=== PATIENT | male | born 2000 | race African-American/Black ===

== ENCOUNTER 2019-10-16 09:07 | Inpatient (IN) | payer SELFPAY ==
[2019-10-16 09:13] VITALS: BP 140/89; PULSE 60; RESP 18; TEMP 36.4; O2SAT 100; BMI 24.3
--- NOTE | 2019-10-16 09:16 | ED_ITS ---
Entered by Sis Gamino, acting as scribe for Ivelisse Benito MD HPI - Psych General: Chief Complaint: Psychiatric Symptoms Stated Complaint: SI Time Seen by Provider: 10/16/19 09:12 Source: patient Mode of arrival: ambulatory Limitations: no limitations History of Present Illness: HPI Narrative: 19 yo male presents with depression and SI thoughts. pt states he is having a hard time dealing with his son, son is teething and crying more. pt states he wants help with depression. pt denies any other symptoms at this time. MD complaint: suicidal ideation and feels depressed Onset (ago): day(s) (2-3 days) Duration: changing over time Relieving factors: none Exacerbating factors: other (son crying due to teething) Associated psychiatric symptoms: depression Associated symptoms: Reports depression Treatments prior to arrival: none If self harm: admits thoughts of self harm Review of Systems Const: Denies: fever, chills, body aches or change in appetite Eyes: Denies: blurry vision or eye discomfort ENMT: Denies: throat pain or dental pain Card: Denies: chest pain Resp: Denies: shortness of breath GI: Denies: abdominal pain, nausea, vomiting or diarrhea : Denies: painful urination Musc: Denies: neck pain or back pain Skin/Breast: Denies: rash Neuro: Denies: headache Psych: Reports: depression Kyle/Lymph: Denies: easy bruising All/Imm: Denies: hives PFSH ED PFSH: Social History Smoking and tobacco status: never smoked Physical Exam Const: COMMON NORMALS: no apparent distress, oriented x3 and healthy appearing HENMT: COMMON NORMALS: normocephalic and head/scalp atraumatic HEAD & SCALP: normocephalic and atraumatic Eye: COMMON NORMALS: PERRL and EOMs intact bilaterally PUPIL: Yes PERRL Neck/C-Spine: COMMON NORMALS: full ROM and supple Chest: COMMONS NORMALS: inspection of chest normal and palpation of chest normal Resp: COMMON NORMALS: normal respiratory effort, no retractions, no use of accessory muscles and clear to auscultation bilaterally AUSCULTATION: clear to auscultation bilaterally Cardio: COMMON NORMALS: regular rate, regular rhythm and no murmurs RATE: regular rate RHYTHM: regular rhythm GI: COMMON NORMALS: normal to inspection, nondistended, normoactive bowel sounds, soft to palpation, non-tender and no masses PALPATION: Yes soft Extremity: COMMON NORMALS: normal to inspection and full ROM Neuro: COMMON NORMALS: oriented x3, moves all extremities and no focal motor deficits Skin: COMMON NORMALS: no rashes or lesions noted and no wounds GENERAL SKIN EXAM: no rashes or lesions noted MDM - Psych MDM Narrative: Medical decision making narrative: Patient presents here with depression and being overwhelmed. He is currently out of his meds as well. Patient's voluntary and would like to be admitted. I spoke to psychiatrist and will admit to the MPU. Patient is medically cleared. Lab Data: Labs: Lab Results 10/16/19 10/16/19 10/16/19 Range/Units 09:30 09:40 09:40 WBC 4.3 L (4.5-13.0) 10^3/ uL RBC 4.95 (4.1-5.3) 10^6/u L Hgb 14.9 (11.7-16.6) g/dL Hct 45.4 (42.0-52.0) % MCV 91.7 (80-94) fL MCH 30.1 (28.0-34.0) pg MCHC 32.8 (30.0-36.0) g/dL RDW 13.0 (12.1-15.1) % Plt Count 238 (130-400) 10^3/c mm MPV 10.8 H (7.4-10.4) fL Neut % (Auto) 51.1 % Lymph % (Auto) 34.3 % Foard % (Auto) 8.8 % Eos % (Auto) 4.4 % Baso % (Auto) 1.2 % Neut # (Auto) 2.2 (1.8-8.0) 10^3/u L Lymph # (Auto) 1.5 (1.5-6.5) 10^3/u L Foard # (Auto) 0.4 (0.2-0.9) 10^3/u L Eos # (Auto) 0.2 (0.0-0.8) 10^3/u L Baso # (Auto) 0.1 (0.0-0.1) 10^3/u L Nucleated RBC % (a uto) 0 % Nucleated RBCs # 0.0 /100WBC Sodium 143 (136-145) mmol/L Potassium 4.3 (3.5-5.1) mmol/L Chloride 104 (98-107) mmol/L Carbon Dioxide 26 (22-29) mmol/L Anion Gap 17.3 (5-19) BUN 13 (6-20) mg/dL Creatinine 0.8 (0.7-1.2) mg/dL GFR Calculation 149.1 H (90-130) mL/min Glucose 100 (65-115) mg/dL Calcium 10.0 (8.5-10.5) mg/dL Total Bilirubin 0.3 (0.15-1.2) mg/dL AST 31 (0-40) U/L ALT 23 (0-41) U/L Alkaline Phosphata se 89 (40-130) IU/L Total Protein 8.2 (6.6-8.7) g/dL Albumin 4.6 (3.5-5.2) g/dL Globulin 3.6 (1.3-4.6) g/dL Salicylates < 0.3 L (3-10) mg/dL Urine Opiates Scre en Negative (Negative) ng/mL Acetaminophen < 5.0 L (10-30) ug/mL Ur Barbiturates Sc reen Negative (Negative) ng/mL Ur Phencyclidine S crn Negative (Negative) ng/mL Ur Amphetamines Sc reen Negative (Negative) ng/mL U Benzodiazepines Scrn Negative (Negative) ng/mL Urine Cocaine Scre en Negative (Negative) ng/mL U Marijuana (THC) Screen Negative (Negative) ng/mL Ethyl Alcohol < 10 (0-10) mg/dL Discharge Plan Discharge Patient Disposition: Admitted As Inpatient Clinical Impression: Depression Qualifiers: Depression Type: unspecified Qualified Code(s): F32.9 - Major depressive disorder, single episode, unspecified Condition: Stable Coding Level of Care Code ED Marketing Account Manager for Chg Fwd Exam Comprehensive The documentation recorded by the Stevenson shen Bridget Annette, accurately reflects the service I personally performed and the decisions made by , Ivelisse Benito MD Oct 16, 2019 09:07
[2019-10-16 09:56] LABS: Basophils # 0.1 10^3/uL (0.0-0.1); Basophils % 1.2 %; Eosinophils # 0.2 10^3/uL (0.0-0.8); Eosinophils % 4.4 %; Hematocrit 45.4 % (42.0-52.0); Hemoglobin 14.9 g/dL (11.7-16.6); Lymphocytes # 1.5 10^3/uL (1.5-6.5); Lymphocytes % 34.3 %; Mean Corpuscular HGB Conc 32.8 g/dL (30.0-36.0); Mean Corpuscular Hemoglobin 30.1 pg (28.0-34.0); Mean Corpuscular Volume 91.7 fL (80-94); Mean Platelet Volume 10.8 fL (7.4-10.4); Monocytes # 0.4 10^3/uL (0.2-0.9); Monocytes % 8.8 %; Neutrophils # 2.2 10^3/uL (1.8-8.0); Neutrophils % 51.1 %; Nucleated Red Blood Cells % 0 %; Platelet Count 238 10^3/cmm (130-400); Red Blood Count 4.95 10^6/uL (4.1-5.3); White Blood Count 4.3 10^3/uL (4.5-13.0)
--- NOTE | 2019-10-16 10:00 | PC.NURSE ---
LUNCH SACK GIVEN
[2019-10-16 10:13] LABS: Alanine Aminotransferase 23 U/L (0-41); Albumin Level 4.6 g/dL (3.5-5.2); Alkaline Phosphatase 89 IU/L (40-130); Anion Gap 17.3 (5-19); Aspartate Amino Transferase 31 U/L (0-40); Blood Urea Nitrogen 13 mg/dL (6-20); Carbon Dioxide 26 mmol/L (22-29); Chloride 104 mmol/L (98-107); Creatinine Clr Calc Pharmacy 174.5692; Globulin 3.6 g/dL (1.3-4.6); Glomerular Filtration Rate 149.1 mL/min (90-130); Glucose 100 mg/dL (65-115); Potassium 4.3 mmol/L (3.5-5.1); Sodium 143 mmol/L (136-145); Total Bilirubin 0.3 mg/dL (0.15-1.2); Total Protein 8.2 g/dL (6.6-8.7)
[2019-10-16 10:14] LABS: Amphetamines Screen Urine Negative (Negative); Barbiturates Screen Urine Negative (Negative); Benzodiazepines Screen Urine Negative (Negative); Cocaine Screen Urine Negative (Negative); Opiate Screen Urine Negative (Negative); PCP Screen Urine Negative (Negative); THC Screen Urine Negative (Negative)
[2019-10-16 10:19] LABS: Acetaminophen < 5.0 ug/mL (10-30); Alcohol Level < 10 mg/dL (0-10); Salicylate < 0.3 mg/dL (3-10)
[2019-10-16] MEDS: LORazepam 1 mg Tablet PO (10:50)
[2019-10-16 10:57] VITALS: BP 138/76; PULSE 65; RESP 18; O2SAT 100
[2019-10-16 12:48] VITALS: BP 123/80; PULSE 66; RESP 18; TEMP 36.2; O2SAT 99
[2019-10-16 14:00] VITALS: BP 125/74; PULSE 54; RESP 18; TEMP 36.6; O2SAT 100
[2019-10-16] MEDS: doxepin 50 mg Capsule PO (20:39)
--- NOTE | 2019-10-16 20:59 | PC.NURSE ---
With patient permission, called his employer to let them know he will not be showing up tomorrow because he is a patient at [facility], spoke with Andrea Mcneil.
[2019-10-16 21:35] VITALS: BP 113/68; PULSE 55; RESP 17; TEMP 36.9; O2SAT 100
[2019-10-17 05:59] VITALS: BP 116/71; PULSE 54; RESP 16; TEMP 36.5; O2SAT 100
--- NOTE | 2019-10-17 07:53 | P.HP_ITS ---
Providers/Chief Complaint Admitting Physician: True Brown MD Chief Complaint: SI HPI NPU History of Present Illness Chief complaint: I want them to think I'm more than worthless. Everything I do is wrong. History of present illness: Vandana Esparza is a 19 year old male who presents to the ER wanting medications that served him well until the age of 14. He said that he took Adderall to help focus his attention and Abilify to help free him from intrusive thoughts. However these are the only interventions with which she is familiar. In reality, he describes himself as suffering from clinical depression. He reports feeling sad and blue on a daily basis and he has extremely low self-esteem and feels hopeless and overwhelmed. he has good hedonic capacity. He has had suicidal thoughts in the past but infrequently. There have been no homicidal thoughts. He does report intrusive auditory hallucinations that are somewhat vague in nature. He says that he has established multiple different personalities to help deal with difficult situations in life and he hears the voices of personalities that help him manage what is going on. He denies that they have a command nature. They seem to be egosyntonic. however he would like to get rid of them so that he can focus his attention on the problems at hand.he says that he has not slept well for several years and sleeps only 15-20 minutes at a time. He is irritable. he denies a history of manic episodes. His urine drug screen is negative and he denies a history of substance use. Mental health history: he was treated at [facility] in [place]. He received a combination of counseling and medication management. He was managed on Adderall and Abilify did well. He was on his medications bet ween fifth and ninth grade. He has not received mental health care since then. He has never been hospitalized for mental health reasons. Social history: he is not a particularly linear historian. He moved to [place] from [place]. He says that in high school he was an excellent athlete. 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 He also enjoys being a [place]. However he does not see any potential for engaging in such activities since moving to [place]. He lives with his fianc?e and his 2-year-old child. At this point, his most important sources of enjoyment and self-esteem are his relationship with his ean and his 2-year-old child Legal history:no reported history of criminal activity arrests or convictions. Past medical history:he is in otherwise good health. I refer you to his medical assessment by the nursing staff in the emergency room. Mental Status Exam: the patient is a tall thin athletic black male appearing approximately his stated age. Eye contact is good. There is no attention to internal stimuli. He is believed to be a reliable informant to the best of his ability as information provided in his report is internally consistent and consistent with that in his chart that we do have any historical information. Appearance: hygiene is good; no gross neurological deficits., gait is unremarkable; AIMS=0 Speech: Speech is of normal rate and rhythm. his southern accent often makes it difficult to understand him completely. Thought processes: Thought processes are abstract. Judgment is adequate for safety. Associations: intact Psychotic processes: There is no indication of guarding or paranoia. There is no attention to the internal stimuli. Auditory and visual hallucinations are denied. Judgment: Insight is fair. Problem solving skills are adequate for safety. Orientation: The patient is oriented to person, place time and situation. Memory: no deficits noted in immediate, intermediate, or remote spheres. Attention: The patient is alert and interpersonally engaged. Language: Verbalizations are coherent. Fund of knowledge: Fund of knowledge is adequate. Affect/Mood: Affect is tearful with a depressed mood. he denied current suicidal ideation Affective range constricted Psychosis: perception unimpaired except through cognitive distortion; reality testing intact. 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 A variety of options were provided in terms of medication intervention he chose to initiate wellbutrin xl 150 mg daily with total administration of Abilify 5 mg daily. He is familiar with the Abilify and has taken in the past. Potential benefits and side effects of these medications were discussed. Did see plan for unexpected or intolerable side effects is discontinuation. He was also provided doxepin 25 mg 1-2 at bedtime when necessary insomnia. [facility] where hopefully he will get a combination of medication management and individual psychotherapy. Prognosis is good given that he is able to identify specific activities in which he would like to engage it would bring him a sense of self- esteem and enjoyment that is sorely missing in his life at this point. Meds NPU Home Medications Medication Instructions Recorded Confirmed Type No Known Home Medications 10/16/19 10/16/19 History Allergies Allergy/AdvReac Type Severity Reaction Status Date / Time No Known Allergies Allergy Verified 10/16/19 09:20 PFSH NPU PFSH: Social History Smoking and tobacco status: never smoked Vitals/I&O/Wt Last Vital Signs Temp 97.7 F 10/17/19 05:59 Pulse 54 L 10/17/19 05:59 Resp 16 10/17/19 05:59 BP 116/71 10/17/19 05:59 Pulse Ox 100 10/17/19 05:59 Weight last 48 hrs Weight 86.183 kg Data NPU : 10/16/19 09:40 10/16/19 09:40 Involuntary Hold Information 96 Hour Hold: 96 Hour Involuntary Admission: No Attestations NPU Medical Necessity Statement*: patient will remain in the hospital 1-2 nights until discharge planning can be established. Coding Level of Care Code Acute Medical Records Technician for [place]
[2019-10-17] MEDS: buPROPion XL (24 HR) 150 mg Tablet PO (10:15)
[2019-10-17] MEDS: ARIPiprazole 10 mg Tablet 5 MG PO (10:15)
--- NOTE | 2019-10-17 11:30 | PM.NDC ---
Reason for Visit Reason for Visit: Reason For Visit: SI Hospital Course Hospital Course Chief complaint: I want them to think I'm more than worthless. Everything I do is wrong. History of present illness: Vandana Esparza is a 19 year old male who presents to the ER wanting medications that served him well until the age of 14. He said that he took Adderall to help focus his attention and Abilify to help free him from intrusive thoughts. However these are the only interventions with which she is familiar. In reality, he describes himself as suffering from clinical depression. He reports feeling sad and blue on a daily basis and he has extremely low self-esteem and feels hopeless and overwhelmed. he has good hedonic capacity. He has had suicidal thoughts in the past but infrequently. There have been no homicidal thoughts. He does report intrusive auditory hallucinations that are somewhat vague in nature. He says that he has established multiple different personalities to help deal with difficult situations in life and he hears the voices of personalities that help him manage what is going on. He denies that they have a command nature. They seem to be egosyntonic. however he would like to get rid of them so that he can focus his attention on the problems at hand.he says that he has not slept well for several years and sleeps only 15-20 minutes at a time. He is irritable. he denies a history of manic episodes. His urine drug screen is negative and he denies a history of substance use. Mental health history: he was treated at [facility] in [place]. He received a combination of counseling and medication management. He was managed on Adderall and Abilify did well. He was on his medications between fifth and ninth grade. He has not received mental health care since then. He has never been hospitalized for mental health reasons. Social history: he is not a particularly linear historian. He moved to [place] from [place]. He says that in high school he was an excellent athlete. 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 He also enjoys being a [place]. However he does not see any potential for engaging in such activities since moving to [place]. He lives with his ena and his 2-year-old child. At this point, his most important sources of enjoyment and self-esteem are his relationship with his ean and his 2-year-old child Legal history:no reported history of criminal activity arrests or convictions. Past medical history:he is in otherwise good health. I refer you to his medical assessment by the nursing staff in the emergency room. Mental Status Exam: the patient is a tall thin athletic black male appearing approximately his stated age. Eye contact is good. There is no attention to internal stimuli. He is believed to be a reliable informant to the best of his ability as information provided in his report is internally consistent and consistent with that in his chart that we do have any historical information. Appearance: hygiene is good; no gross neurological deficits., gait is unremarkable; AIMS=0 Speech: Speech is of normal rate and rhythm. his southern accent often makes it difficult to understand him completely. Thought processes: Thought processes are abstract. Judgment is adequate for safety. Associations: intact Psychotic processes: There is no indication of guarding or paranoia. There is no attention to the internal stimuli. Auditory and visual hallucinations are denied. Judgment: Insight is fair. Problem solving skills are adequate for safety. Orientation: The patient is oriented to person, place time and situation. Memory: no deficits noted in immediate, intermediate, or remote spheres. Attention: The patient is alert and interpersonally engaged. Language: Verbalizations are coherent. Fund of knowledge: Fund of knowledge is adequate. Affect/Mood: Affect is tearful with a depressed mood. he denied current suicidal ideation Affective range constricted Psychosis: perception unimpaired except through cognitive distortion; reality testing intact. 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 A variety of options were provided in terms of medication intervention he chose to initiate wellbutrin xl 150 mg daily with total administration of Abilify 5 mg daily. He is familiar with the Abilify and has taken in the past. Potential benefits and side effects of these medications were discussed. Did see plan for unexpected or intolerable side effects is discontinuation. He was also provided doxepin 25 mg 1-2 at bedtime when necessary insomnia. Follow-[facility] where hopefully he will get a combination of medication management and individual psychotherapy. Prognosis is good given that he is able to identify specific activities in which he would like to engage it would bring him a sense of self-esteem and enjoyment that is sorely missing in his life at this point. Involuntary Hold Information 96 Hour Hold: 96 Hour Involuntary Admission: No Discharge Data Vitals: Last Vital Signs Temp 97.7 F 10/17/19 05:59 Pulse 54 L 10/17/19 05:59 Resp 16 10/17/19 05:59 BP 116/71 10/17/19 05:59 Pulse Ox 100 10/17/19 05:59 Discharge Plan Discharge Patient Disposition: Home, Self-Care Condition: Stable Prescriptions: New doxepin 50 mg Capsule 50 mg PO BEDTIME PRN (Reason: Insomnia) Qty: 30 RF: 4 aripiprazole 10 mg Tablet 5 mg PO DAILY Qty: 30 RF: 4 bupropion HCl 150 mg Tablet Extended Release 24 Hr 150 mg PO DAILY Qty: 30 RF: 5 Discharge Orders: Discharge Order (Routine); Ordered 10/17/19 Ordered By: True Brown Referrals: URGENT CARE PROVIDERS [Provider Group] [facility] [[facility]] Activity Restrictions/Additional Instructions: Follow up as a walk in at [facility], walk in hours are from 7:30AM-2:00PM, first come, first seen. Once you do this assessment you will be referred for appropriate services such as medication management and therapy. Another option for medications is [facility] [address] [place] [id number] Discharge Attestations NPU Time Spent in Discharge Care*: less than 30 min Coding Level of Care Code Acute Director Of District Office for [place]
[2019-10-17 11:50] VITALS: BP 116/71; PULSE 54; RESP 16; TEMP 36.5; O2SAT 100
== END 2019-10-17 14:49 | disposition home or self-care (01) | DRG 885 ==
LOC: ER 10:38 → NP 10:51
PROVIDERS: Admitting Provider Psychiatry & Neurology Psychiatry; Emergency Provider Emergency Medicine; Visit Provider Psychiatry & Neurology Psychiatry
DX: F33.3 Major depressive disorder, recurrent, severe with psychotic symptoms (principal); R45.851 Suicidal ideations; F51.01 Primary insomnia
CPT/HCPCS: 12345; 36415; 80053; 80307; 85025; 99284; A9270

== ENCOUNTER 2019-11-06 16:16 | Emergency (ER) | payer SELFPAY ==
[2019-11-06 16:16] VITALS: BMI 25.7
--- NOTE | 2019-11-06 16:18 | ED_ITS ---
Entered by Carrol Felton, acting as scribe for Shae Nguyen Rosetta HPI - Chest Pain General: Chief Complaint: Chest Pain Stated Complaint: CHEST PAIN Time Seen by Provider: 11/06/19 16:18 Source: patient and RN notes reviewed Mode of arrival: EMS Limitations: no limitations History of Present Illness: HPI narrative: 19 yo male presents to ED with complaints of chest pain. He said the pain is located in the L side of his chest, under his L breast. The patient states the pain began this morning. He said he was working when the pain began. He describes the pain as pressure . He said the pain radiates up to his head. He said he has never had this pain before now. He said exertion makes the pain worse. He said the pain feels different when pressure is applied. He said he does have a history of asthma but the pain does not feel like his asthma. He said he also has ADHD. He said he has a family medical history of HTN and cancer. MD complaint: chest pain Pertinent past history: asthma Onset (ago): hour(s) (this morning) Timing of current episode: constant Prior episodes: No Onset: during exertion Pain location: left chest Pain radiation: other (head) Severity: moderate Quality: other (pressure) Relieving factors: nothing Exacerbating factors: exertion Associated symptoms: Deny abdominal pain, diaphoresis, dyspnea, fever(s), nausea, palpitations, syncope or vomiting Risk Factors: Coronary artery disease risk factors: none Thoracic aortic dissection risk factors: none Review of Systems General: Reports: other (negative unless marked) Const: Denies: fever, chills, body aches, fatigue, malaise or diaphoresis Eyes: Denies: change in vision or blurry vision ENMT: Denies: throat pain, painful swallowing, hoarseness, ear pain, ear discharge, Change in hearing or nasal discharge Card: Denies: chest pain, palpitations, irregular heart rhythm, syncope, pre- syncope, shortness of breath on exertion or shortness of breath when lying down Resp: Denies: shortness of breath, productive cough, non-productive cough, wheezing, coughing up blood or chest congestion GI: Denies: abdominal pain, nausea, vomiting, vomiting blood, coffee grounds in vomit, diarrhea, constipation, cramping, blood in stool or black tarry stool : Denies: flank pain, difficulty urinating, painful urination, urinary frequency, urinary urgency, decreased urine ouput, urinary incontinence or blood in urine Musc: Denies: neck pain, back pain, extremity pain, extremity swelling, joint pain, joint swelling, joint warmth or joint stiffness Skin/Breast: Denies: rash, skin tenderness or yellow skin Neuro: Denies: headache, numbness in extremities, weakness in extremities, changes in sensation, lack of coordination, difficulty walking, dizziness, vertigo or confusion Endo: Denies: excessive thirst, tired all the time, cold intolerance, excessive sweating, flushing or hot flashes Kyle/Lymph: Denies: easy bruising, easy bleeding, petechiae or enlarged lymph nodes All/Imm: Denies: hives, throat swelling, tongue swelling, facial swelling or acute wheezing PFSH ED PFSH: Social History Smoking and tobacco status: never smoked Physical Exam Const: COMMON NORMALS: no apparent distress, oriented x3, no limitations, healthy appearing and well nourished EXAM LIMITATIONS: no altered mental status GENERAL APPEARANCE: cooperative, well kempt and well developed ORIENTATION/CONSCIOUSNESS: Yes awake HENMT: COMMON NORMALS: normocephalic, head/scalp atraumatic, hearing grossly normal bilaterally, external ears normal, EAC's normal, external nose normal and moist oral mucous membranes HEAD & SCALP: normal to inspection, normocephalic and atraumatic FACE & SINUS: normal facial exam and face symmetric NOSE: external nose normal and nares normal EXTERNAL EAR: Yes external ears normal EXTERNAL AUDITORY CANAL: EAC's normal MOUTH: oral and palatal mucosa normal and tongue normal Eye: COMMON NORMALS: PERRL, EOMs intact bilaterally, conjunctivae normal and no scleral icterus GENERAL EYE: normal appearance of both eyes and normal light reflex CONJUNCTIVA: Yes conjunctivae normal SCLERA: sclerae normal CORNEA: Yes corneas normal PUPIL: Yes PERRL DIRECT OPHTHALMOSCOPY: Yes normal light reflex Neck/C-Spine: COMMON NORMALS: full ROM, no lymphadenopathy, supple, no meningeal signs and no JVD GENERAL: Yes normal visual inspection and Yes trachea midline CERVICAL SPINE: Yes cervical ROM normal Chest: COMMONS NORMALS: inspection of chest normal and palpation of chest normal Resp: COMMON NORMALS: normal respiratory effort, no retractions, no use of accessory muscles and clear to auscultation bilaterally EFFORT & INSPECTION: Yes able to speak in complete sentences AUSCULTATION: clear to auscultation bilaterally Cardio: COMMON NORMALS: no JVD, regular rate, regular rhythm, S1 normal heart sound, S2 normal heart sound, no gallops, no clicks, no murmurs and no rub JUGULAR VENOUS DISTENTION: no JVD RATE: regular rate RHYTHM: regular rhythm HEART SOUNDS: S1 normal and S2 normal GI: COMMON NORMALS: soft to palpation, non-tender, no hepatosplenomegaly and no masses INSPECTION: Yes normal to inspection PALPATION: Yes soft and Yes no hepatosplenomegaly : COMMON NORMALS: Yes no CVA tenderness BLADDER/KIDNEY EXAM: Yes no CVA tenderness Back/Pelvis: COMMON NORMALS: no CVA tenderness, thoracic and lumbar spine normal to inspection, no thoracic nor lumbar tenderness and thoraco-lumbar ROM normal Extremity: COMMON NORMALS: normal to inspection, full ROM, normal capillary refill, no joint enlargement, no clubbing, cyanosis or edema and no calf tenderness Neuro: COMMON NORMALS: oriented x3, CN's II-XII intact bilaterally, moves all extremities, no focal motor deficits and no sensory deficits noted MENINGEAL SIGNS: Yes no meningeal signs Psych: COMMON NORMALS: mental status grossly normal, thought process normal, cooperative, affect normal, speech normal and activity/motor behavior normal APPEARANCE: Yes well kempt SPEECH: Yes normal speech THOUGHT PROCESS: normal thought process Skin: COMMON NORMALS: no rashes or lesions noted, skin turgor normal, no jaundice, no petechiae and no mottling GENERAL SKIN EXAM: no rashes or lesions noted and turgor normal Course Vital Signs: Vital signs: Vital Signs Temperature 98.5 F 11/06/19 16:21 Pulse Rate 68 11/06/19 19:32 Respiratory Rate 14 11/06/19 19:32 Blood Pressure 131/71 11/06/19 19:32 Pulse Oximetry 99 11/06/19 19:32 MDM - Chest Pain MDM Narrative: Medical decision making narrative: Mr. Esparza is a nice 19-year-old male comes in complaining of chest pain is localized left lower chest wall. It was reproducible to palpation. His EKGs are unremarkable. They were reviewed with Dr. Ruiz. Patient has no sign of aortic dissection. He had strong pulses throughout to all extremities and centrally. They were equal. His EKG is normal. His chest x-ray was normal per radiology. Patient believes night probably had a panic attack. He agrees to follow-up with his regular doctor return if necessary. Lab Data: Labs: Lab Results 11/06/19 11/06/19 11/06/19 Range/Units 16:41 16:41 16:41 WBC 6.6 (4.5-13.0) 10^3/ uL RBC 4.83 (4.1-5.3) 10^6/u L Hgb 13.6 (11.7-16.6) g/dL Hct 42.8 (42.0-52.0) % MCV 88.6 (80-94) fL MCH 28.2 (28.0-34.0) pg MCHC 31.8 (30.0-36.0) g/dL RDW 13.1 (12.1-15.1) % Plt Count 206 (130-400) 10^3/c mm MPV 10.7 H (7.4-10.4) fL Neut % (Auto) 73.1 % Lymph % (Auto) 19.2 % [place] % (Auto) 5.7 % Eos % (Auto) 1.2 % Baso % (Auto) 0.3 % Neut # (Auto) 4.9 (1.8-8.0) 10^3/u L Lymph # (Auto) 1.3 L (1.5-6.5) 10^3/u L [place] # (Auto) 0.4 (0.2-0.9) 10^3/u L Eos # (Auto) 0.1 (0.0-0.8) 10^3/u L Baso # (Auto) 0.0 (0.0-0.1) 10^3/u L Nucleated RBC % (a uto) 0 % Nucleated RBCs # 0.0 /100WBC D-Dimer 0.35 (0-0.59) ug/mIFE U Sodium 142 (136-145) mmol/L Potassium 4.0 (3.5-5.1) mmol/L Chloride 102 (98-107) mmol/L Carbon Dioxide 29 (22-29) mmol/L Anion Gap 15.0 (5-19) BUN 12 (6-20) mg/dL Creatinine 0.9 (0.7-1.2) mg/dL GFR Calculation 130.2 H (90-130) mL/min Glucose 98 (65-115) mg/dL Calculated Osmolal ity 290 (285-295) mOsm/k g Calcium 9.7 (8.5-10.5) mg/dL Total Bilirubin 0.4 (0.15-1.2) mg/dL AST 30 (0-40) U/L ALT 30 (0-41) U/L Alkaline Phosphata se 67 (40-130) IU/L Troponin T Baselin e (0-15) ng/mL Total Protein 7.4 (6.6-8.7) g/dL Albumin 4.6 (3.5-5.2) g/dL Globulin 2.8 (1.3-4.6) g/dL Ethyl Alcohol < 10 (0-10) mg/dL Influenza Type A A g (Negative) POC Influenza B Ag (Negative) 11/06/19 11/06/19 Range/Units 16:41 17:03 WBC (4.5-13.0) 10^3/ uL RBC (4.1-5.3) 10^6/u L Hgb (11.7-16.6) g/dL Hct (42.0-52.0) % MCV (80-94) fL MCH (28.0-34.0) pg MCHC (30.0-36.0) g/dL RDW (12.1-15.1) % Plt Count (130-400) 10^3/c mm MPV (7.4-10.4) fL Neut % (Auto) % Lymph % (Auto) % [place] % (Auto) % Eos % (Auto) % Baso % (Auto) % Neut # (Auto) (1.8-8.0) 10^3/u L Lymph # (Auto) (1.5-6.5) 10^3/u L [place] # (Auto) (0.2-0.9) 10^3/u L Eos # (Auto) (0.0-0.8) 10^3/u L Baso # (Auto) (0.0-0.1) 10^3/u L Nucleated RBC % (a uto) % Nucleated RBCs # /100WBC D-Dimer (0-0.59) ug/mIFE U Sodium (136-145) mmol/L Potassium (3.5-5.1) mmol/L Chloride (98-107) mmol/L Carbon Dioxide (22-29) mmol/L Anion Gap (5-19) BUN (6-20) mg/dL Creatinine (0.7-1.2) mg/dL GFR Calculation (90-130) mL/min Glucose (65-115) mg/dL Calculated Osmolal ity (285-295) mOsm/k g Calcium (8.5-10.5) mg/dL Total Bilirubin (0.15-1.2) mg/dL AST (0-40) U/L ALT (0-41) U/L Alkaline Phosphata se (40-130) IU/L Troponin T Baselin e 7 (0-15) ng/mL Total Protein (6.6-8.7) g/dL Albumin (3.5-5.2) g/dL Globulin (1.3-4.6) g/dL Ethyl Alcohol (0-10) mg/dL Influenza Type A A g Negative (Negative) POC Influenza B Ag Negative (Negative) EKG Data^: EKG 1: Attestation: I personally reviewed and interpreted this EKG as follows: EKG interpretation date: 11/06/19 EKG interpretation time: 16:30 Interpretation: Normal sinus rhythm at 68 beats a minute, nonspecific ST-T wave changes. Cover with Dr. Ruiz. EKG 2: Attestation: I personally reviewed and interpreted this EKG as follows: EKG interpretation date: 11/06/19 EKG interpretation time: 18:46 Interpretation: NSR @ 61, No acute ST/T wave changes. Discharge Plan Discharge Patient Disposition: Home, Self-Care Clinical Impression: Chest pain Qualifiers: Chest pain type: unspecified Qualified Code(s): R07.9 - Chest pain, unspecified Condition: Stable Prescriptions: No Action Tylenol 325 mg Tablet 325 mg PO QID PRN (Reason: Pain) RF: 0 doxepin 50 mg Capsule 50 mg PO BEDTIME PRN (Reason: Insomnia) Qty: 30 RF: 4 aripiprazole 10 mg Tablet 5 mg PO DAILY Qty: 30 RF: 4 bupropion HCl 150 mg Tablet Extended Release 24 Hr 150 mg PO DAILY Qty: 30 RF: 5 Discharge Orders: Discharge Order (Routine); Ordered 11/06/19 Ordered By: Shae Nguyen Referrals: Mirta Glez DO [Physician] - 1-3 days Discharge Diet: Advance as tolerated Discharge Activity: Increase activity as tolerated Patient Instructions: Chest Pain (ED) Activity Restrictions/Additional Instructions: Please return to the ER immediately for any of the signs or symptoms listed on your discharge instruction sheets, worsening/changing of your symptoms, you are not getting better as quickly as expected, or for ANY other cause or concerns. Return to the ER for return of your anxiety, return of your chest pain, we akness, vomiting, fever, or for any other cause for concern. Discharge Date/Time: 11/06/19 19:34 Coding Level of Care Code ED [employer] Manager for Chg Fwd Exam Comprehensive The documentation recorded by the Jose Francisco shen Valerie R, accurately reflects the service I personally performed and the decisions made by , Shae Nguyen
[2019-11-06 16:21] VITALS: BP 129/69; PULSE 73; RESP 16; TEMP 36.9; O2SAT 98
--- NOTE | 2019-11-06 16:23 | XR_ITS ---
WS: [id number] CHEST XRAY TECHNIQUE: Portable chest. CLINICAL INFORMATION: cough COMPARISON: None. FINDINGS: Heart: Normal cardiac silhouette. Lungs: Lungs are clear. No consolidation or pleural effusion. Bones: Normal visualized bony structures. XR/XR chest 1V portable [id number] IMPRESSION: Normal chest
--- NOTE | 2019-11-06 16:24 | ECG_ITS ---
Measurements Intervals [place] Rate: 68 P: 70 [place]: 160 QRS: 21 QRSD: 106 T: 59 QT: 382 QTc: 409 SINUS RHYTHM No previous ECG available for comparison Electronically Signed On 11-07-2019 13:00:20 CDT by Jenny Ruiz M.D. [email or web address]
[2019-11-06] MEDS: sodium chloride 0.9% 1,000 ML 100 ML IV (16:54)
[2019-11-06] MEDS: aspirin 325 mg Tablet PO (16:55)
[2019-11-06 16:59] LABS: Basophils % 0.3 %; Eosinophils # 0.1 10^3/uL (0.0-0.8); Eosinophils % 1.2 %; Hematocrit 42.8 % (42.0-52.0); Hemoglobin 13.6 g/dL (11.7-16.6); Lymphocytes # 1.3 10^3/uL (1.5-6.5); Lymphocytes % 19.2 %; Mean Corpuscular HGB Conc 31.8 g/dL (30.0-36.0); Mean Corpuscular Hemoglobin 28.2 pg (28.0-34.0); Mean Corpuscular Volume 88.6 fL (80-94); Mean Platelet Volume 10.7 fL (7.4-10.4); Monocytes # 0.4 10^3/uL (0.2-0.9); Monocytes % 5.7 %; Neutrophils # 4.9 10^3/uL (1.8-8.0); Neutrophils % 73.1 %; Nucleated Red Blood Cells % 0 %; Platelet Count 206 10^3/cmm (130-400); Red Blood Count 4.83 10^6/uL (4.1-5.3); Red Cell Distribution Width 13.1 % (12.1-15.1); White Blood Count 6.6 10^3/uL (4.5-13.0)
[2019-11-06 17:01] VITALS: PULSE 74; RESP 15; O2SAT 98
[2019-11-06 17:14] LABS: Alanine Aminotransferase 30 U/L (0-41); Albumin Level 4.6 g/dL (3.5-5.2); Alkaline Phosphatase 67 IU/L (40-130); Aspartate Amino Transferase 30 U/L (0-40); Blood Urea Nitrogen 12 mg/dL (6-20); Calcium 9.7 mg/dL (8.5-10.5); Carbon Dioxide 29 mmol/L (22-29); Chloride 102 mmol/L (98-107); Globulin 2.8 g/dL (1.3-4.6); Glomerular Filtration Rate 130.2 mL/min (90-130); Glucose 98 mg/dL (65-115); Osmolality Calculated 290 mOsm/kg (285-295); Sodium 142 mmol/L (136-145); Total Bilirubin 0.4 mg/dL (0.15-1.2); Total Protein 7.4 g/dL (6.6-8.7)
[2019-11-06 17:16] LABS: Alcohol Level < 10 mg/dL (0-10); Troponin(5th) Baseline 7 ng/mL (0-15)
[2019-11-06 17:20] LABS: D Dimer 0.35 ug/mIFEU (0-0.59)
[2019-11-06 17:29] LABS: Influenza A by IFA Negative (Negative); Influenza B by IFA Negative (Negative)
[2019-11-06 18:07] VITALS: RESP 16
--- NOTE | 2019-11-06 18:24 | ECG_ITS ---
Measurements Intervals [place] Rate: 61 P: 61 DC: 169 QRS: 26 QRSD: 107 T: 52 QT: 395 QTc: 400 SINUS RHYTHM WITH SINUS ARRHYTHMIA NONSPECIFIC ST ELEVATION [0.05+ mV ST ELEVATION] No previous ECG available for comparison Electronically Signed On 11-07-2019 13:08:02 CDT by Jenny Ruiz M.D. [email or web address]
--- NOTE | 2019-11-06 19:00 | PC.NURSE ---
REPORT RECEIVED FROM TORO CLAIRE AND CARE TRANSFERRED TO TORO HOWELL
[2019-11-06 19:32] VITALS: BP 131/71; PULSE 68; RESP 14; O2SAT 99
== END 2019-11-06 19:34 | disposition home or self-care (01) ==
PROVIDERS: Emergency Provider Emergency Medicine
DX: R07.9 Chest pain, unspecified (principal); J45.909 Unspecified asthma, uncomplicated
CPT/HCPCS: 12345; 36415; 71045; 80053; 80307; 84484; 85025; 85378; 87804; 93005; 96360; 96361; 99283; 99284; J7030